=== PATIENT | male | born 1985 | race Two or more races ===

== ENCOUNTER 2024-09-28 09:43 | Inpatient (IN) | payer MEDICAID ==
[~2024-09-28] VITALS: Ht 200.7 cm; Wt 130.6 kg
[2024-09-28 10:45] VITALS: BP 140/91; PULSE 81; RESP 14; TEMP 97.9; O2SAT 97
[2024-09-28] MEDS ORDERED: magnesium hydroxide 30ml (MOM) UD suspension PO PRN (11:05)
[2024-09-28] MEDS ORDERED: loperamide 2mg capsule PO PRN (11:05)
[2024-09-28] MEDS ORDERED: NICOTINE POLACRILEX 2 MG LOZENGE BC PRN (11:05)
[2024-09-28] MEDS ORDERED: acetaminophen 325mg tablet PO PRN (11:05)
[2024-09-28] MEDS ORDERED: mag hydrox/Alum hydrox/simeth 30ml oral suspension PO PRN (11:05)
[2024-09-28 11:10] VITALS: RESP 14; O2SAT 97
[2024-09-28] MEDS ORDERED: OMEP20CA16 PO (11:23)
[2024-09-28 19:00] VITALS: RESP 14; O2SAT 97
[2024-09-28 20:00] VITALS: BP 129/65; PULSE 92; RESP 14; TEMP 99.6; O2SAT 97
[2024-09-28] MEDS: acetaminophen 325mg tablet PO PRN (21:22)
[2024-09-29 07:00] VITALS: RESP 16; O2SAT 96
[2024-09-29 08:00] VITALS: BP 138/83; PULSE 68; RESP 16; TEMP 97.6; O2SAT 96
[2024-09-29] MEDS: nicotine 21mg patch - 24 hr TD SCH (08:00)
[2024-09-29] MEDS: pantoprazole 40mg Tablet.DR PO SCH (08:08)
[2024-09-29 08:40] LABS: HDL CHOLESTEROL 39 MG/DL (35-60); LDL CHOLESTEROL 77 MG/DL (50-100); TRIGLYCERIDES 84 MG/DL (20-135)
[2024-09-29 08:45] LABS: CHOL/HDL RATIO 3.2 (0.00-4.99); CHOLESTEROL 124 MG/DL (0-200)
[2024-09-29 08:52] LABS: HEMOGLOBIN A1C 5.2 % (4.5-6.2)
[2024-09-29 19:00] VITALS: RESP 16; O2SAT 96
[2024-09-29 19:26] VITALS: BP 144/72; PULSE 88; RESP 25; TEMP 98.6; O2SAT 96
[2024-09-29 20:00] VITALS: RESP 16
[2024-09-29] MEDS: mirtazapine 15mg tablet PO SCH (20:06)
[2024-09-30 07:00] VITALS: BP 148/99; PULSE 84; RESP 16; TEMP 97.7; O2SAT 97
[2024-09-30] MEDS: LORazepam 1 MG tablet PO PRN (10:45)
[2024-09-30] MEDS: ibuprofen 200mg tablet PO ONE (11:11)
[2024-09-30] MEDS: diphenhydrAMINE 50 mg/ml inj ONE (11:20)
[2024-09-30] MEDS: haloperidol lactate 5mg/ml inj ONE (11:21)
[2024-09-30] MEDS: LORazepam 2 mg/ml vial ONE (11:21)
[2024-09-30] MEDS: ibuprofen 200mg tablet PO SCH (12:42)
[2024-09-30] MEDS: mirtazapine 15mg tablet PO SCH (20:05)
[2024-10-01 07:00] VITALS: BP 113/66; PULSE 75; RESP 16; TEMP 97.8; O2SAT 97
[2024-10-01 19:31] VITALS: BP 109/68; PULSE 84; RESP 16; TEMP 98.4; O2SAT 99
[2024-10-02 08:00] VITALS: BP 123/83; PULSE 74; RESP 16; TEMP 97.9; O2SAT 96
[2024-10-02 11:29] VITALS: RESP 16; O2SAT 96
[2024-10-02 19:58] VITALS: BP 103/59; PULSE 82; RESP 16; TEMP 97.7; O2SAT 100
[2024-10-03 07:00] VITALS: RESP 16; O2SAT 92
[2024-10-03] MEDS ORDERED: MIRT-87 PO (07:08)
[2024-10-03] MEDS ORDERED: OMEP20CA16 PO (07:08)
[2024-10-03 08:00] VITALS: BP 145/96; PULSE 103; RESP 16; TEMP 97.1; O2SAT 92
== END 2024-10-03 10:26 | disposition home or self-care (01) | DRG 776 ==
LOC: ADULT MH 10:42
PROVIDERS: ADMIT Psychiatry & Neurology Psychiatry; ATTEND Psychiatry & Neurology Psychiatry
PROC: GZHZZZZ Group Psychotherapy (ICD-10-PCS; principal; 2024-09-29)
PROC: GZ51ZZZ Individual Psychotherapy, Behavioral (ICD-10-PCS; 2024-09-29)
DX: F15.19 Other stimulant abuse with unspecified stimulant-induced disorder (principal); F32.A Depression, unspecified; F41.9 Anxiety disorder, unspecified; H33.22 Serous retinal detachment, left eye; Z59.00 Homelessness unspecified
CPT/HCPCS: 36415; 80061; 83036; 87081; A6258; A6446; A6449; J1200; J1630; J2060